=== PATIENT | male | born 1965 | race Caucasian/White ===

== ENCOUNTER 2019-01-08 14:20 | Emergency (ER) | payer BC ==
--- NOTE | 2019-01-08 14:40 | ER Document Report ---
ED Medical Screen (RME) - General Chief Complaint: High Blood Sugar Stated Complaint: BLOOD SUGAR PROBLEMS Time Seen by Provider: 01/08/19 14:37 Primary Care Provider: EDGAR REVELES [Primary Care Provider] - Follow up as needed Mode of Arrival: Ambulatory Information source: Patient Notes: 54-year-old male presented to ED for blood sugar over 500. He went to get his s teroid injection in his neck. He states he forgot to take 1 of his diabetic medicines last night which is an injection of insulin and when he was at the doctor's office getting his steroid injection they did an Accu-Chek and it was 507. 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 He states his latest A1c was over 13. He states he was worried about going home with the sugar that high because he did not want his sugar to get up to over 800. In. His Accu-Chek was 448 and then 478 I have greeted and performed a rapid initial assessment of this patient. A comprehensive ED assessment and evaluation of the patient, analysis of test results and completion of medical decision making process will be conducted by an additional ED providers. Dictation of this chart was performed using voice recognition software; therefore, there may be some unintended grammatical errors. TRAVEL OUTSIDE OF THE [place] IN LAST 30 DAYS: No - Related Data Allergies/Adverse Reactions: No Known Allergies Allergy (Verified 01/08/19 14:20) Physical Exam - Vital signs Vitals: Temp Pulse Resp BP Pulse Ox 97.6 F 111 H 14 155/75 H 96 01/08/19 14:23 01/08/19 14:23 01/08/19 14:23 01/08/19 14:23 01/08/19 14:23 Course - Vital Signs Vital signs: Temp Pulse Resp BP Pulse Ox 97.6 F 111 H 14 155/75 H 96 01/08/19 14:23 01/08/19 14:23 01/08/19 14:23 01/08/19 14:23 01/08/19 14:23 Doctor's Discharge - Discharge Referrals: EDGAR REVELES [Primary Care Provider] - Follow up as needed
[2019-01-08] MEDS: NORMAL SALINE 1000 ML 1,000 ML IV PRN ×2 (15:00→16:52)
[2019-01-08 15:12] LABS: APPEARANCE,URINE CLEAR; BILIRUBIN,URINE NEGATIVE (NEGATIVE); COLOR,URINE STRAW; GLUCOSE, URINE >=500 mg/dL (NEGATIVE); KETONES,URINE NEGATIVE (NEGATIVE); LEUKOCYTE ESTERASE,URINE NEGATIVE (NEGATIVE); NITRITE,URINE NEGATIVE (NEGATIVE); PROTEIN,URINE NEGATIVE (NEGATIVE); URINE SPECIFIC GRAVITY 1.029; UROBILINOGEN,URINE NEGATIVE mg/dL (<2.0)
[2019-01-08 15:18] LABS: ABSOLUTE EOSINOPHILS # (AUTO) 0.6 10^3/uL (0.0-0.6); ABSOLUTE MONOCYTES (AUTO) 0.3 10^3/uL (0.1-1.4); ABSOLUTE NEUT (AUTO) 7.5 10^3/uL (1.7-8.2); BASOPHILS % (AUTO) 0.4 % (0-2); EOSINOPHILS % (AUTO) 5.9 % (0-6); HEMATOCRIT 46.6 % (37.9-51.0); HEMOGLOBIN 16.5 g/dL (13.5-17.0); LYMPHOCYTES % (AUTO) 10.3 % (13-45); MEAN CORPUSCULAR HEMOGLOBIN 29.6 pg (27.0-33.4); MEAN CORPUSCULAR HGB CONC 35.4 g/dL (32.0-36.0); MEAN CORPUSCULAR VOLUME 84 fl (80-97); PLATELET COUNT 256 10^3/uL (150-450); RED BLOOD COUNT 5.57 10^6/uL (4.35-5.55); RED CELL DISTRIBUTION WIDTH 13.4 % (11.5-14.0); SEGMENTED NEUTROPHILS % (AUTO) 80.4 % (42-78); TOTAL CELLS COUNTED % (AUTO) 100 %; WHITE BLOOD COUNT 9.4 10^3/uL (4.0-10.5)
[2019-01-08 15:20] LABS: VENOUS BLOOD HCO3 22.6 mmol/L (20-32); VENOUS BLOOD PCO2 38.3 mmHg (35-63); VENOUS BLOOD PH 7.39 (7.30-7.42)
[2019-01-08 15:40] LABS: ALANINE AMINOTRANSFERASE 46 U/L (21-72); ALBUMIN 4.8 g/dL (3.5-5.0); ALKALINE PHOSPHATASE 92 U/L (38-126); ANION GAP 16 (5-19); ASPARTATE AMINO TRANSFERASE 24 U/L (17-59); BILIRUBIN,DIRECT 0.4 mg/dL (0.0-0.4); BILIRUBIN,TOTAL 1.1 mg/dL (0.2-1.3); BLOOD UREA NITROGEN 14 mg/dL (7-20); CARBON DIOXIDE 25 mmol/L (22-30); CHLORIDE 95 mmol/L (98-107); POTASSIUM 4.8 mmol/L (3.6-5.0); SODIUM 135.6 mmol/L (137-145); TOTAL PROTEIN 7.7 g/dL (6.3-8.2)
[2019-01-08 15:46] LABS: GLUCOSE 456 mg/dL (75-110)
[2019-01-08] MEDS ORDERED: NORMAL SALINE 1000 ML 1,000 ML IV PRN (16:18)
[2019-01-08] MEDS ORDERED: INSULIN REG, HUMAN 100 UNIT/ML 3 ML VIAL (PYX) SUBCUT ONE (16:23)
--- NOTE | 2019-01-08 16:27 | ER Document Report ---
ED General - General Chief Complaint: High Blood Sugar Stated Complaint: BLOOD SUGAR PROBLEMS Time Seen by Provider: 01/08/19 14:37 Primary Care Provider: DANICA LUNA MD [NO LOCAL ] - Follow up in 3-5 days LOCALEDGAR VIERA [NO RENEE VIERA] - Follow up as needed Mode of Arrival: Ambulatory Information source: Patient, Relative, Dr. Corona, [facility] Records Notes: 54-year-old male with diabetes, hypertension, hyperlipidemia presents from [facility] with hyperglycemia. Patient states that he is admittedly noncompliant with his diet and medications. Reports a hemoglobin A1c of 13 and blood sugars that are normally in the 400s. Patient denies any headache, nausea, vomiting, chest pain, shortness of breath, recent illness, abdominal pain, dysuria, hematuria. Patient states that he was being seen earlier for right-sided neck pain and received a steroid injection. Afterwards the provider found out that the patient was diabetic and checked his sugars. She was concerned that the sugars would continue to climb. Patient sees Dr. Luna for his diabetes care. TRAVEL OUTSIDE OF THE [place] IN LAST 30 DAYS: No - HPI Onset: Just prior to arrival Onset/Duration: Gradual Quality of pain: No pain Severity: None Pain Level: Denies Associated symptoms: denies: Chest pain, Productive cough, Headache, Nausea, Vomiting, Shortness of breath Exacerbated by: Denies Relieved by: Denies Similar symptoms previously: Yes Recently seen / treated by doctor: Yes - Related Data Allergies/Adverse Reactions: No Known Allergies Allergy (Verified 01/08/19 14:20) Past Medical History - General Information source: Patient - Social History Smoking Status: Unknown if Ever Smoked Chew tobacco use (# tins/day): No Frequency of alcohol use: None Drug Abuse: None Lives with: Family, Spouse/Significant other Family History: Reviewed & Not Pertinent Patient has suicidal ideation: No Patient has homicidal ideation: No - Past Medical History Cardiac Medical History: Reports: Hx Hypercholesterolemia, Hx Hypertension Endocrine Medical History: Reports: Hx Diabetes Mellitus Type 2 Renal/ Medical History: Denies: Hx Peritoneal Dialysis Past Surgical History: Reports: Hx Urinary Tract Surgery - 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 Review of Systems - Review of Systems Notes: REVIEW OF SYSTEMS: CONSTITUTIONAL : Denies fever, chills, or sweats. Denies recent illness. Denies weight loss, recent hospitalizations. EENT: Denies visual changes, eye pain. Denies sore throat, oral lesions, difficulty swallowing. CARDIOVASCULAR: Denies chest pain. Denies palpitations. Denies lower extremity edema. RESPIRATORY: Denies cough. Denies shortness of breath, wheezing. GASTROINTESTINAL: Denies abdominal pain or distention. Denies nausea, vomiting, or diarrhea. Denies blood in vomitus, stools, or per rectum. Denies black, tarry stools. Denies constipation. GENITOURINARY: Denies difficulty urinating, painful urination, frequency, blood in urine, testicular pain or penile discharge. MUSCULOSKELETAL: Denies back or neck pain or stiffness. Denies joint pain or swelling. SKIN: Denies rash, lesions or sores. HEMATOLOGIC : Denies easy bruising or bleeding. LYMPHATIC: Denies swollen glands. NEUROLOGICAL: Denies confusion or altered mental status. Denies loss of consciousness. Denies dizziness or lightheadedness. Denies headache. Denies weakness or paralysis. Denies problems difficulty with ambulation, slurred speech. Denies sensory loss, numbness, or tingling. Denies seizures. PSYCHIATRIC: Denies anxiety or stress. Denies depression, suicidal ideation, or Physical Exam - Vital signs Vitals: Temp Pulse Resp BP Pulse Ox 97.6 F 111 H 14 155/75 H 96 01/08/19 14:23 01/08/19 14:23 01/08/19 14:23 01/08/19 14:23 01/08/19 14:23 - Notes Notes: PHYSICAL EXAMINATION: GENERAL: Well-appearing, well-nourished and in no acute distress. HEAD: Atraumatic, normocephalic. EYES: Pupils equal round and reactive to light, extraocular movements intact, sclera anicteric, conjunctiva are normal. ENT: Nares patent, oropharynx clear without exudates. Moist mucous membranes. NECK: Normal range of motion, supple without lymphadenopathy LUNGS: Breath sounds clear to auscultation bilaterally and equal. No wheezes rales or rhonchi. HEART: Regular rate and rhythm without murmurs ABDOMEN: Soft, nontender, nondistended abdomen. No guarding, no rebound. No masses appreciated. Musculoskeletal: Normal range of motion, no pitting or edema. No cyanosis. NEUROLOGICAL: Cranial nerves grossly intact. Normal speech, normal gait. Norm al sensory, motor exams PSYCH: Normal mood, normal affect. SKIN: Warm, Dry, normal turgor, no rashes or lesions noted. Course - Re-evaluation Re-evalutation: Laboratory 01/08/19 01/08/19 01/08/19 14:40 14:56 14:56 WBC 9.4 RBC 5.57 H Hgb 16.5 Hct 46.6 MCV 84 MCH 29.6 MCHC 35.4 RDW 13.4 Plt Count 256 Seg Neutrophils % 80.4 H Lymphocytes % 10.3 L Monocytes % 3.0 Eosinophils % 5.9 Basophils % 0.4 Absolute Neutrophils 7.5 Absolute Lymphocytes 1.0 Absolute Monocytes 0.3 Absolute Eosinophils 0.6 Absolute Basophils 0.0 VBG pH VBG pCO2 VBG HCO3 VBG Base Excess Sodium 135.6 L Potassium 4.8 Chloride 95 L Carbon Dioxide 25 Anion Gap 16 BUN 14 Creatinine 0.98 Est GFR ( Amer) > 60 Est GFR (Non-Af Amer) > 60 Glucose 456 H* POC Glucose 448 H* Calcium 10.0 Total Bilirubin 1.1 Direct Bilirubin 0.4 Neonat Total Bilirubin Not Reportable Neonat Direct Bilirubin Not Reportable Neonat Indirect Bili Not Reportable AST 24 ALT 46 Alkaline Phosphatase 92 CK-MB (CK-2) Total Protein 7.7 Albumin 4.8 Urine Color Urine Appearance Urine pH Ur Specific [place] Urine Protein Urine Glucose (UA) Urine Ketones Urine Blood Urine Nitrite Urine Bilirubin Urine Urobilinogen Ur Leukocyte Esterase Urine WBC (Auto) Squamous Epi Cells Auto Urine Ascorbic Acid 01/08/19 01/08/19 01/08/19 14:56 14:56 15:12 WBC RBC Hgb Hct MCV MCH MCHC RDW Plt Count Seg Neutrophils % Lymphocytes % Monocytes % Eosinophils % Basophils % Absolute Neutrophils Absolute Lymphocytes Absolute Monocytes Absolute Eosinophils Absolute Basophils VBG pH 7.39 VBG pCO2 38.3 VBG HCO3 22.6 VBG Base Excess -2.0 Sodium Potassium Chloride Carbon Dioxide Anion Gap BUN Creatinine Est GFR ( Amer) Est GFR (Non-Af Amer) Glucose POC Glucose Calcium Total Bilirubin Direct Bilirubin Neonat Total Bilirubin Neonat Direct Bilirubin Neonat Indirect Bili AST ALT Alkaline Phosphatase CK-MB (CK-2) 1.37 Total Protein Albumin Urine Color STRAW Urine Appearance CLEAR Urine pH 5.0 Ur Specific [place] 1.029 Urine Protein NEGATIVE Urine Glucose (UA) >=500 H Urine Ketones NEGATIVE Urine Blood NEGATIVE Urine Nitrite NEGATIVE Urine Bilirubin NEGATIVE Urine Urobilinogen NEGATIVE Ur Leukocyte Esterase NEGATIVE Urine WBC (Auto) 1 Squamous Epi Cells Auto <1 Urine Ascorbic Acid NEGATIVE Temp Pulse Resp BP Pulse Ox 97.6 F 111 H 16 155/75 H 94 01/08/19 14:23 01/08/19 14:23 01/08/19 15:28 01/08/19 14:23 01/08/19 15:28 01/08/19 16:25 54-year-old male with diabetes who takes metformin thousand milligrams twice daily and Tresiba 60 units at night presents from his primary care physician's office with elevated blood glucose. Patient's provider became concerned after injecting him with a steroid and finding out the patient was diabetic. In the office the glucose was in the 400s. Patient is asymptomatic. Admits to noncompliance with his medication and diet. Vital signs reviewed and patient is mildly tachycardic but afebrile and not hypoxic. Patient does not appear toxic or dehydrated. He is in no acute distress. CBC is without leukocytosis or anemia. CMP shows hyperglycemia without evidence of DKA. VBG within normal limits. Urinalysis does show glucosuria. Patient did receive 3 L of IV fluids and 10 units of subcu insulin. Will be reevaluated after fluid and insulin administration. 01/08/19 18:27 Repeat glucose is downtrending and now 329. Patient was evaluated and treated as appropriate for the patient's presenting symptoms and complaint, with consideration of any critical or life threatening conditions that may be associated with their obtained history and exam as noted above. All results were discussed with patient and his who is at the bedside. Patient provided the opportunity to ask questions, and express concerns. Patient was educated on treatments based on their presumed diagnosis as noted above. At this time we will discharge the patient with return precautions and follow-up recommendations. Verbal discharge instructions given a the bedside. Medication warnings reviewed. Patient is in agreement with this plan and has verbalized understanding of return precautions. After careful consideration I feel that that patient can be safely discharged from the emergency department, they were advised to followup with a primary care physician in 2-3 days. Dictation on this chart was performed using voice recognition software and may result in unintended grammatical, spelling, syntax or errors. - Vital Signs Vital signs: Temp Pulse Resp BP Pulse Ox 97.6 F 111 H 12 148/92 H 98 01/08/19 14:23 01/08/19 14:23 01/08/19 18:01 01/08/19 18:01 01/08/19 18:01 - Laboratory Result Diagrams: 01/08/19 14:56 01/08/19 14:56 Laboratory results interpreted by me: 01/08/19 01/08/19 01/08/19 14:40 14:56 14:56 RBC 5.57 H Seg Neutrophils % 80.4 H Lymphocytes % 10.3 L Sodium 135.6 L Chloride 95 L Glucose 456 H* POC Glucose 448 H* Urine Glucose (UA) 01/08/19 14:56 RBC Seg Neutrophils % Lymphocytes % Sodium Chloride Glucose POC Glucose Urine Glucose (UA) >=500 H Discharge - Discharge Clinical Impression: Hyperglycemia Type 2 diabetes mellitus Qualifiers: Diabetes mellitus medical terminologist insulin use: with half-way use Diabetes mellitus complication status: with other specified complication Qualified Code(s): E11.69 - Type 2 diabetes mellitus with other specified complication Condition: Good Disposition: HOME, SELF-CARE Instructions: Diabetes ([facility]), Hyperglycemia ([facility]) Additional Instructions: The steroid injection you received can continue to elevate your sugar for the next several days. Please return to the emergency department if your sugar is above 400, you experience persistent nausea vomiting fever, abdominal pain or any other symptoms concerning to you. Forms: Elevated Blood Pressure Referrals: EDGAR REVELES [NO LOCAL MD] - Follow up as needed DANICA LUNA MD [NO LOCAL MD] - Follow up in 3-5 days
[2019-01-08 18:24] VITALS: BP 148/92
== END 2019-01-08 18:38 | disposition home or self-care (01) ==
LOC: ER 14:20
DX: E11.65 Type 2 diabetes mellitus with hyperglycemia (principal); Z79.84 Long term (current) use of oral hypoglycemic drugs; I10 Essential (primary) hypertension; Z91.14 Patient's other noncompliance with medication regimen; Z91.11 Patient's noncompliance with dietary regimen; R00.0 Tachycardia, unspecified
CPT/HCPCS: 99283; 96360; 96361; 36415; 82553; 82962; 85025; 80053; 81001; 82803; J1815; J7030

== ENCOUNTER 2019-03-28 12:30 | Emergency (ER) | payer BC ==
[2019-03-28] MEDS ORDERED: NORMAL SALINE 1000 ML 1,000 ML IV ONE ×2 (12:59→14:30)
[2019-03-28] MEDS ORDERED: ONDANSETRON HCL INJ/PF 4 MG/2 ML SDV IV ONE (12:59)
--- NOTE | 2019-03-28 13:02 | ER Document Report ---
ED Medical Screen (RME) - General Chief Complaint: Abdominal Pain Stated Complaint: ABDOMINAL PAIN Time Seen by Provider: 03/28/19 12:48 Mode of Arrival: Ambulatory Information source: Patient Notes: Patient is a 54-year-old male presented to the emergency department chief complaint of abdominal pain, chills, vomiting and rash. Patient reports all symptoms started 2 days ago. He reports the pain is intermittent but severe. He states he vomited one time this morning. He is not sure if he still has his appendix and does report history of renal surgery and hernia repair. Exam: Hives noted to right flank area. Tenderness to palpation to low abdomen. I have greeted and performed a rapid initial assessment of this patient. A comprehensive ED assessment and evaluation of the patient, analysis of test results and completion of the medical decision making process will be conducted by additional ED providers. I have specifically instructed the patient or family members with the patient to immediately return to any nursing staff should anything change in the patient's condition or with their chief complaint. This medical record was dictated with voice recognizing software. There may be grammatical, syntax errors that are unintended. TRAVEL OUTSIDE OF THE [place] 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 Physical Exam - Vital signs Vitals: Temp Pulse Resp BP Pulse Ox 98.0 F 112 H 16 125/76 98 03/28/19 12:45 03/28/19 12:45 03/28/19 12:45 03/28/19 12:45 03/28/19 12:45 Course - Vital Signs Vital signs: Temp Pulse Resp BP Pulse Ox 98.0 F 112 H 16 125/76 98 03/28/19 12:45 03/28/19 12:45 03/28/19 12:45 03/28/19 12:45 03/28/19 12:45
[2019-03-28 13:24] LABS: HEMATOCRIT 47.9 % (37.9-51.0); HEMOGLOBIN 16.9 g/dL (13.5-17.0); MEAN CORPUSCULAR HEMOGLOBIN 29.2 pg (27.0-33.4); MEAN CORPUSCULAR HGB CONC 35.3 g/dL (32.0-36.0); MEAN CORPUSCULAR VOLUME 83 fl (80-97); PLATELET COUNT 256 10^3/uL (150-450); RED BLOOD COUNT 5.79 10^6/uL (4.35-5.55); RED CELL DISTRIBUTION WIDTH 14.2 % (11.5-14.0); WHITE BLOOD COUNT 15.6 10^3/uL (4.0-10.5)
[2019-03-28 13:44] LABS: ABSOLUTE LYMPHOCYTES# (MANUAL) 0.9 10^3/uL (0.5-4.7); ABSOLUTE MONOCYTES # (MANUAL) 0.9 10^3/uL (0.1-1.4); ALBUMIN 4.2 g/dL (3.5-5.0); ALKALINE PHOSPHATASE 107 U/L (38-126); ANION GAP 11 (5-19); ASPARTATE AMINO TRANSFERASE 19 U/L (17-59); BAND NEUTROPHILS % (MANUAL) 1 % (3-5); BASOPHILS % (MANUAL) 0 % (0-2); BILIRUBIN,DIRECT 0.2 mg/dL (0.0-0.4); BILIRUBIN,TOTAL 1.4 mg/dL (0.2-1.3); BLOOD UREA NITROGEN 15 mg/dL (7-20); CALCIUM 8.6 mg/dL (8.4-10.2); CARBON DIOXIDE 25 mmol/L (22-30); CHLORIDE 99 mmol/L (98-107); EOSINOPHILS % (MANUAL) 5 % (0-6); GLUCOSE 260 mg/dL (75-110); LYMPHOCYTES % (MANUAL) 6 % (13-45); MONOCYTES % (MANUAL) 6 % (3-13); POTASSIUM 4.1 mmol/L (3.6-5.0); SEGMENTED NEUTROPHILS % (MAN) 82 % (42-78); TOTAL CELLS COUNTED 100; TOTAL PROTEIN 6.9 g/dL (6.3-8.2)
[2019-03-28 13:45] LABS: ANISOCYTOSIS SLIGHT; POLYCHROMASIA SLIGHT; TOXIC VACUOLATION PRESENT
[2019-03-28 13:46] LABS: PLATELET COMMENT ADEQUATE
--- NOTE | 2019-03-28 14:35 | ER Document Report ---
ED General - General Chief Complaint: Abdominal Pain Stated Complaint: ABDOMINAL PAIN Time Seen by Provider: 03/28/19 12:48 Primary Care Provider: PETTY FISHER MD [Primary Care Provider] - Follow up as needed Mode of Arrival: Ambulatory TRAVEL OUTSIDE OF THE [place] IN LAST 30 DAYS: No - HPI Notes: Patient is a 54-year-old male with a history of type 2 diabetes, hypertension, anxiety who presents complaining of intermittent lower abdominal pain over the past couple days with diarrhea and one episode of vomiting this morning. Patient states that he did have some chills as well. Since receiving fluids and medicine he does feel better than he did. He has not had any melena or hematochezia. He is urinating normally. Patient states that he has noticed a 'heat rash' to his rt flank, groin, and was on his face as well but has since improved. Denies drug allergies. Denies any headache, fever, neck pain, URI, sore throat, chest pain, palpitations, syncope, cough, shortness of breath, wheeze, dyspnea, urinary retention, dysuria, hematuria, back pain. 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 Review of Systems - Review of Systems -: Yes All other systems reviewed and negative Physical Exam - Vital signs Vitals: Temp Pulse Resp BP Pulse Ox 98.0 F 112 H 16 125/76 98 03/28/19 12:45 03/28/19 12:45 03/28/19 12:45 03/28/19 12:45 03/28/19 12:45 - Notes Notes: PHYSICAL EXAMINATION: GENERAL: Well-appearing, well-nourished and in no acute distress. HEAD: Atraumatic, normocephalic. EYES: Pupils equal round and reactive to light, extraocular movements intact, sclera anicteric, conjunctiva are normal. ENT: Nares patent and without discharge. oropharynx clear without exudates. No tonsilar hypertrophy or erythema. Moist mucous membranes. NECK: Normal range of motion, supple without lymphadenopathy LUNGS: Breath sounds clear to auscultation bilaterally and equal. No wheezes rales or rhonchi. HEART: Regular rate and rhythm without murmurs, rubs, gallops. ABDOMEN: Soft, nondistended abdomen. No guarding, no rebound. Normal bowel sounds present. No CVA tenderness bilaterally. Lyles neg. no tenderness at [place]. Non-tender to palp throughout. Musculoskeletal: FROM to passive/active. Strength 5+/5. Extremities: No cyanosis, clubbing, or edema b/l. Peripheral pulses 2+. Capillary refill less than 3 seconds. NEUROLOGICAL: Cranial nerves grossly intact. Normal speech, normal gait. PSYCH: Normal mood, normal affect. SKIN: there is a noted wheal appearing/hives rash to the rt flank and groin areas that has faded. No erythema migrans, fluctuance, induration, or streaks/discharge. Course - Re-evaluation Re-evalutation: 03/28/19 15:57 Patient is an afebrile, well-hydrated, 54-year-old male who presents with coliti s. Vitals are acceptable without significant tachycardia, tachypnea, or hypoxia. PE is otherwise unremarkable. Patient is nontoxic-appearing and is tolerating p.o. without difficulty. Patient currently has no abdominal tenderness. See lab results. Lactic acid 1.8. Patient has received fluids as well as nausea medication. The rash does appear to be hives, but has already faded. See CT scan report. No further work-up warranted at this time. Pt states that he is feeling much better and is ready to go home. Low suspicion/risk for acute appendicitis, bowel obstruction, acute cholecystitis, perforated diverticulitis, incarcerated hernia, pancreatitis, perforated ulcer, peritonitis, sepsis, testicular torsion, necrotizing fasciitis, SJS, SSS, drug reaction, sepsis, meningitis, syphilis, Lyme disease, Coburn spotted fever, or other systemic emergent condition at this time. Patient is aware that his condition can change from initial presentation and he needs to monitor symptoms closely and seek medical attention if any acute changes. I will send him home with a prescription for Cipro and Flagyl. Conservative measures otherwise for symptoms. Recheck with PCM in 2-3 days. 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 Return to the ED with any worsening/concerning symptoms otherwise as reviewed in discharge. Patient is in agreement. - Vital Signs Vital signs: Temp Pulse Resp BP Pulse Ox 98.0 F 112 H 16 125/76 98 03/28/19 12:45 03/28/19 12:45 03/28/19 12:45 03/28/19 12:45 03/28/19 12:45 - Laboratory Result Diagrams: 03/28/19 13:11 03/28/19 13:11 Laboratory results interpreted by me: 03/28/19 03/28/19 03/28/19 13:11 13:11 14:44 WBC 15.6 H RBC 5.79 H RDW 14.2 H Seg Neuts % (Manual) 82 H Band Neutrophils % 1 L Lymphocytes % (Manual) 6 L Abs Neuts (Manual) 12.9 H Absolute Eos (Manual) 0.8 H Sodium 135.3 L Glucose 260 H Total Bilirubin 1.4 H Urine Glucose (UA) >=500 H Urine Ketones 20 H Discharge - Discharge Clinical Impression: Colitis, Rash and nonspecific skin eruption Condition: Stable Disposition: HOME, SELF-CARE Additional Instructions: Maintain adequate fluid and food intake [place] diet ([employer] Bananas, rice, apples, toast, etc Zofran as needed tylenol if needed Monitor for any worsening symptoms Make sure you are staying hydrated enough to urinate and have normal BM's Recheck with your PCM in 2-3 days Schedule consult with Gastroenterology Return to the ED with any worsening symptoms and/or development of fever, headache, chest pain, palpitations, syncope, shortness of breath, trouble breathing, abdominal pain, n/v/d, blood in stool/urine, weakness, or other worsening symptoms that are concerning to you. Prescriptions: Tramadol HCl [Ultram 50 mg Tablet] 50 mg PO Q4HP PRN #15 tab PRN Reason: Ciprofloxacin HCl [Cipro 500 mg Tablet] 500 mg PO BID #20 tablet Metronidazole [Flagyl] 500 mg PO TID #30 tablet Metoclopramide HCl [Reglan] 10 mg PO BID PRN #10 tablet PRN Reason: Forms: Return to Work Referrals: PETTY FISHER MD [Primary Care Provider] - Follow up as needed DALTON RIVERA MD [ACTIVE STAFF] - Follow up as needed LATASHA RODRIGUEZ MD [ACTIVE STAFF] - Follow up as needed
[2019-03-28 15:03] LABS: APPEARANCE,URINE CLEAR; BILIRUBIN,URINE NEGATIVE (NEGATIVE); COLOR,URINE YELLOW; GLUCOSE, URINE >=500 mg/dL (NEGATIVE); KETONES,URINE 20 mg/dL (NEGATIVE); LEUKOCYTE ESTERASE,URINE NEGATIVE (NEGATIVE); NITRITE,URINE NEGATIVE (NEGATIVE); PROTEIN,URINE NEGATIVE (NEGATIVE); URINE SPECIFIC GRAVITY 1.011; UROBILINOGEN,URINE NEGATIVE mg/dL (<2.0)
--- NOTE | 2019-03-28 15:55 | RADIOLOGY REPORT (SQ) ---
EXAM DESCRIPTION: CT ABD/PELVIS WITH IV ONLY COMPLETED DATE/TIME: 03/28/2019 3:20 pm REASON FOR STUDY: n/v/d, abd pain COMPARISON: None. TECHNIQUE: CT scan of the abdomen and pelvis performed using helical scanning technique with dynamic intravenous contrast injection. No oral contrast. Images reviewed with lung, soft tissue, and bone windows. Reconstructed coronal and sagittal MPR images reviewed. Delayed images for evaluation of the urinary system also acquired. All images stored on PACS. All CT scanners at this facility use dose modulation, iterative reconstruction, and/or weight based d osing when appropriate to reduce radiation dose to as low as reasonably achievable (ALARA). [facility]: Dose Right [facility]: CareDose [facility]: Dose Right [facility]: Teradose 4D [facility]: Pacer Electronics CONTRAST TYPE AND DOSE: contrast/concentration: Isovue 350.00 mg/ml; Total Contrast Delivered: 100.0 ml; Total Saline Delivered: 63.0 ml RENAL FUNCTION: GFR > 60. RADIATION DOSE: CT Rad equipment meets quality standard of care and radiation dose reduction techniq ues were employed. CTDIvol: 19.8 - 20.2 mGy. DLP: 2400 mGy-cm.. LIMITATIONS: None. FINDINGS: LOWER CHEST: No significant findings. No nodules or infiltrates. LIVER: Normal size. No masses. No dilated ducts. SPLEEN: Normal size. No focal lesions. PANCREAS: No masses. No significant calcifications. No adjacent inflammation or peripancreatic fluid collections. Pancreatic duct not dilated. GALLBLADDER: No identified stones by CT criteria. No inflammatory changes to suggest cholecystitis. ADRENAL GLANDS: No significant masses or asymmetry. RIGHT KIDNEY AND URETER: No solid masses. Atrophic appearing. No significant calcifications. No h ydronephrosis or hydroureter. LEFT KIDNEY AND URETER: No solid masses. No significant calcifications. No hydronephrosis or hydr oureter. AORTA AND VESSELS: No aneurysm. No dissection. Renal arteries, SMA, celiac without stenosis. RETROPERITONEUM: No retroperitoneal adenopathy, hemorrhage or masses. BOWEL AND PERITONEAL CAVITY: There is diffuse fibrofatty mural stratification of the colon and rectum , most notable in the cecum. No free fluid or peritoneal masses. APPENDIX: Normal. PELVIS: No mass. No free fluid. Normal bladder. ABDOMINAL WALL: No masses. No hernias. BONES: No significant or acute findings. OTHER: No other significant finding. IMPRESSION: 1. There is diffuse fibrofatty mural stratification of the colon and rectum, most notabl e in the cecum. Findings are suggestive of ongoing and/or chronic nonspecific colitis, including inf lammatory bowel disease. Correlate for referable clinical history if present. 2. Atrophic right kidney, in keeping with history of ureteral implantation. TECHNICAL DOCUMENTATION: JOB ID: [id number] Quality ID # [id number]: Final reports with documentation of one or more dose reduction techniques (e.g., Au tomated exposure control, adjustment of the mA and/or kV according to patient size, use of iterative reconstruction technique) 2010 [employer]- All Rights Reserved Reading location - IP/workstation name: [email or web address]
[2019-03-28] MEDS ORDERED: DIPHENHYDRAMINE HCL 50 MG/ML VIAL IV ONE (16:00)
[2019-03-28 16:27] VITALS: BP 112/58
== END 2019-03-28 16:27 | disposition home or self-care (01) ==
LOC: ER 12:30
DX: K52.9 Noninfective gastroenteritis and colitis, unspecified (principal); R21 Rash and other nonspecific skin eruption; R10.30 Lower abdominal pain, unspecified; E11.9 Type 2 diabetes mellitus without complications; I10 Essential (primary) hypertension; F41.9 Anxiety disorder, unspecified; E78.00 Pure hypercholesterolemia, unspecified
CPT/HCPCS: 99284; 96361; 96374; 96375; 36415; 87040; 87086; 83605; 83690; 85025; 80053; 81001; 74177; J1200; J2405; J7030